=== PATIENT | male | born 1945 | race Caucasian/White ===

== ENCOUNTER 2016-09-23 16:09 | Inpatient (IN) | payer MEDICARE, BC ==
[~2016-09-23 16:09] MED LIST: ACETAMINOPHEN325 MG PO; ALBUTEROL S3 ML/VIAL NEB; ASPIR 8181 MG PO; CARDIZEM CD240 MG PO; COLACE100 MG PO; COREG6.25 MG PO; DAILY VITE1 EACH PO; DALIRESP500 MCG PO; EFFEXOR XR150 MG PO; ENSURE COMPLET237 ML PO; FERROUS SULFAT325 MG PO; FLOMAX0.4 MG PO; HYDROCHLOROTHIA25 MG PO; IBUPROFEN800 MG PO; IPRAT-ALBUT 0.5-3 ML NEB; LEVAQUIN750 MG PO; LIPITOR80 MG PO; NASONEX17 GM NS; NEURONTIN600 MG PO; NORVASC10 MG PO; OMEPRAZOLE40 MG PO; PERCOCET 10-321 EACH PO; POLYETHYLENE GL17 GM PO; PRAVACHOL80 MG PO; PREDNISONE10 MG PO; PROTONIX40 MG PO; SPIRIVA18 MCG IH; TOPROL XL50 MG PO; TUDORZA PRESS400 MCG IH; VALIUM5 MG PO; VENTOLIN HFA8 GM IH; VITAMIN C500 M4 PO; XARELTO10 MG PO; ZESTRIL40 MG PO; ZYRTEC10 MG PO
[2016-09-29] MEDS ORDERED: NORVASC10 MG PO (09:33)
[2016-09-29] MEDS ORDERED: VITAMIN C500 M1 PO (09:34)
[2016-09-29] MEDS ORDERED: COREG6.25 MG PO (09:34)
[2016-09-29] MEDS ORDERED: ASPIR 8181 MG PO (09:34)
[2016-09-29] MEDS ORDERED: NEURONTIN300 MG PO (09:35)
[2016-09-29] MEDS ORDERED: HYDROCHLOROTHIA25 MG PO (09:35)
[2016-09-29] MEDS ORDERED: FERROUS SULFAT325 MG PO (09:35)
[2016-09-29] MEDS ORDERED: ZESTRIL40 MG PO (09:36)
[2016-09-29] MEDS ORDERED: IBUPROFEN800 MG PO (09:36)
[2016-09-29] MEDS ORDERED: NORCO 10-325 T1 EACH PO (09:36)
[2016-09-29] MEDS ORDERED: CUBICIN500 MG/10 IV (09:37)
[2016-09-29] MEDS ORDERED: OMEPRAZOLE20 MG PO (09:37)
[2016-09-29] MEDS ORDERED: DAILY VITE1 EACH PO (09:37)
== END 2016-09-26 17:00 | disposition home or self-care (01) | DRG 857 ==
LOC: SDC 16:09 → MED 19:56 → SDC 19:56 → MED 19:56
PROVIDERS: ADMIT Orthopaedic Surgery
PROC: 0JDP0ZZ Extraction of Left Lower Leg Subcutaneous Tissue and Fascia, Open Approach (ICD-10-PCS; principal; 2016-09-23)
PROC: 0S9D3ZX Drainage of Left Knee Joint, Percutaneous Approach, Diagnostic (ICD-10-PCS; principal; 2016-09-23)
PROC: B548ZZA Ultrasonography of Superior Vena Cava, Guidance (ICD-10-PCS; 2016-09-25)
PROC: 02HV33Z Insertion of Infusion Device into Superior Vena Cava, Percutaneous Approach (ICD-10-PCS; 2016-09-25)
DX: T81.4XXA Infection following a procedure, initial encounter (principal); L76.32 Postprocedural hematoma of skin and subcutaneous tissue following other procedure; B95.7 Other staphylococcus as the cause of diseases classified elsewhere; Y83.8 Other surgical procedures as the cause of abnormal reaction of the patient, or of later complication, without mention of misadventure at the time of the procedure; I10 Essential (primary) hypertension; I25.10 Atherosclerotic heart disease of native coronary artery without angina pectoris; F17.210 Nicotine dependence, cigarettes, uncomplicated; M19.90 Unspecified osteoarthritis, unspecified site; Z86.718 Personal history of other venous thrombosis and embolism; Z79.82 Long term (current) use of aspirin; Z79.899 Other long term (current) drug therapy; Z83.3 Family history of diabetes mellitus; Z82.49 Family history of ischemic heart disease and other diseases of the circulatory system
CPT/HCPCS: 97162-GP; C1751; J0171; J1650; J1885; J2270; J2704; J2765; J3370; J7050

== ENCOUNTER → 2016-10-17 | Day surgery (SDC) | payer MEDICARE, BC ==
[~2016-10-17] VITALS: Ht 175.3 cm; Wt 93.0 kg
[~2016-10-17] MED LIST changes: +CUBICIN500 MG/10 IV; +NEURONTIN300 MG PO; +NORCO 10-325 T1 EACH PO; +OMEPRAZOLE20 MG PO; +VITAMIN C500 M1 PO
== END | disposition home or self-care (01) ==
LOC: SDC 10:59
DX: T84.54XA Infection and inflammatory reaction due to internal left knee prosthesis, initial encounter (principal); I10 Essential (primary) hypertension; I25.10 Atherosclerotic heart disease of native coronary artery without angina pectoris; Z86.718 Personal history of other venous thrombosis and embolism; Z79.82 Long term (current) use of aspirin; Z79.899 Other long term (current) drug therapy; F17.210 Nicotine dependence, cigarettes, uncomplicated; Z83.3 Family history of diabetes mellitus; Z82.49 Family history of ischemic heart disease and other diseases of the circulatory system; Z80.9 Family history of malignant neoplasm, unspecified; J44.9 Chronic obstructive pulmonary disease, unspecified; Z96.653 Presence of artificial knee joint, bilateral; K21.9 Gastro-esophageal reflux disease without esophagitis; K59.00 Constipation, unspecified; K74.60 Unspecified cirrhosis of liver; Z85.828 Personal history of other malignant neoplasm of skin
CPT/HCPCS: J1885; J2704; J2765; J3370